=== PATIENT | female | born 1990 | race Two or more races ===

== ENCOUNTER → 2019-07-10 | Outpatient (CLI) | payer OTHER ==
--- NOTE | 2019-07-10 14:27 | KCIC ---
Bilateral breast ultrasound: Reason for examination: Bilateral breast pain. Patient is breast feeding. One [age] half months . Bilateral whole breast ultrasound including evaluation of all 4 quadrants and the retroareolar and axillary regions of both breasts was performed. There is ductal ectasia consistent with history of . The breast parenchyma shows no discrete cystic or solid nodules. No abnormal appearing lymph nodes are seen in either axilla. IMPRESSION: Ductal ectasia consistent with history of . No other focal abnormalities evident in either breast. Recommend clinical follow-up. BI-RADS Category 2: Benign. "Our facility is accredited by the [employer] Mammography Program." This patient's information has been entered into a reminder system for the patient to be notified with the results of her examination and a target date for the next mammogram. Electronically signed by: Kayla Russ MD (07/10/2019 2:24 PM) [id number]
== END | disposition home or self-care (01) ==
LOC: KCIC US 09:45
PROVIDERS: ATTEND Obstetrics & Gynecology
DX: N64.4 Mastodynia (principal)
CPT/HCPCS: 76641